=== PATIENT | male | born 1995 | race Caucasian/White ===

== ENCOUNTER 2020-05-14 20:27 | Inpatient (IN) | payer MEDICAID, OTHER ==
[~2020-05-14] VITALS: Ht 174.6 cm; Wt 112.5 kg
[~2020-05-14 20:27] MED LIST: DIVA-80 PO; RISP2TAB23 PO
[2020-05-14 21:40] LABS: BASOPHILS % (AUTO) 0.3 % (0.0-2.0); HEMATOCRIT 45.7 % (41-53); HEMOGLOBIN 15.5 g/dL (13.5-17.5); LYMPHOCYTES # (AUTO) 2.1 K/uL (1.0-4.8); LYMPHOCYTES % (AUTO) 20.9 % (22.0-44.0); MEAN CORPUSCULAR HEMOGLOBIN 30.6 pg (26.0-34.0); MEAN CORPUSCULAR VOLUME 90 fL (80-100); MONOCYTES # (AUTO) 0.7 K/uL (0.1-1.0); MONOCYTES % (AUTO) 6.8 % (2.0-9.0); PLATELET COUNT (AUTO) 231 K/uL (150-450); RED BLOOD CELL COUNT(AUTO) 5.07 MIL/uL (4.50-5.90); RED CELL DISTRIBUTION WIDTH 13.5 % (11.5-14.5)
[2020-05-14 21:53] LABS: ANION GAP 7 mmol/L (8-16); CALCIUM, TOTAL 9.4 mg/dL (8.8-10.5); CARBON DIOXIDE 31 mmol/L (22-29); CHLORIDE 102 mmol/L (98-107); CREATININE 1.13 mg/dL (0.60-1.30); GLOMERULAR FILTR. RATE CALC > 60 mL/min (>60); GLUCOSE,RANDOM 114 mg/dL (70-110); POTASSIUM 3.3 mmol/L (3.5-5.1); SODIUM SERUM 140 mmol/L (136-145); UREA NITROGEN, BLOOD 7 mg/dL (7-18)
[2020-05-14 21:56] LABS: AMPHET/METH SCREEN,URINE NEGATIVE (NEGATIVE); BARBITURATE SCREEN, URINE NEGATIVE (NEGATIVE); BENZODIAZEPINES SCREEN,URINE NEGATIVE (NEGATIVE); CANNABINOID SCREEN,URINE POSITIVE (NEGATIVE); COCAINE SCREEN,URINE NEGATIVE (NEGATIVE); METHADONE SCREEN, URINE NEGATIVE (NEGATIVE); OPIATE SCREEN,URINE NEGATIVE (NEGATIVE); PHENCYCLIDINE SCREEN,URINE NEGATIVE (NEGATIVE)
[2020-05-14 21:59] LABS: ALANINE AMINOTRANSFERASE 63 U/L (12-78); ALBUMIN 4.4 g/dL (3.4-5.0); ALKALINE PHOSPHATASE 81 U/L (46-116); ASPARTATE AMINOTRANSFERASE 93 U/L (15-37); TOTAL PROTEIN, SERUM 8.3 g/dL (6.4-8.2)
[2020-05-14] MEDS ORDERED: DiphenhydrAMINE HCL 50 MG/ML VIAL IM ONE (22:15)
[2020-05-14] MEDS ORDERED: LORazepam 2 MG/ML VIAL IM ONE (22:15)
[2020-05-14] MEDS ORDERED: POTASSIUM CHLORIDE 20 MEQ ER TABLET PO ONE (22:15)
[2020-05-14] MEDS ORDERED: HALOPERIDOL LACTATE 5 MG/ML VIAL IM ONE (22:15)
[2020-05-14] MEDS ORDERED: HALOPERIDOL 5 MG TABLET PO PRN (23:00)
[2020-05-14] MEDS ORDERED: LORazepam 2 MG TABLET PO PRN (23:00)
[2020-05-15 06:24] LABS: CHOL/HDL RATIO 2.8 (4.2-7.3)
[2020-05-15 09:14] VITALS: BP 133/79
[2020-05-15] MEDS: BACITRACIN 28.4 GM OINTMENT TP SCH ×2 (09:36→16:19)
[2020-05-15] MEDS ORDERED: MAG HYDROX/AL HYDROX/SIMETH ES 30 ML SUSPENSION UDCUP PO PRN (11:15)
[2020-05-15] MEDS ORDERED: ACETAMINOPHEN 325 MG TABLET PO PRN (11:15)
[2020-05-15] MEDS ORDERED: LOPERAMIDE HCL 2 MG CAPSULE PO PRN (11:15)
[2020-05-15] MEDS ORDERED: GuaiFENesin/D-METHORPHAN [SUGAR-FREE] 200-20MG/10 ML SYRUP UDCUP PO PRN (11:15)
[2020-05-15] MEDS ORDERED: ONDANSETRON HCL 4 MG TABLET PO PRN (11:15)
[2020-05-15] MEDS ORDERED: NICOTINE 14 MG/24 HOUR PATCH TD PRN (11:15)
[2020-05-15] MEDS ORDERED: ALBUTEROL SULFATE HFA 90 MCG/PUFF 8 GM INHALER IH PRN (11:15)
[2020-05-15] MEDS ORDERED: CloNIDine HCL 0.1 MG TABLET PO PRN (11:15)
[2020-05-15] MEDS ORDERED: PETROLATUM,WHITE 28 GM JELLY TP PRN (11:15)
[2020-05-15] MEDS ORDERED: MAGNESIUM HYDROXIDE SUSPENSION 30 ML UDCUP PO PRN (11:15)
[2020-05-15] MEDS ORDERED: DOCUSATE SODIUM 100 MG CAPSULE PO PRN (11:15)
[2020-05-15] MEDS ORDERED: IBUPROFEN 400 MG TABLET PO PRN (11:15)
[2020-05-15] MEDS: OLANZapine 5 MG TABLET PO SCH (16:19)
[2020-05-15] MEDS: DIVALPROEX SODIUM 500 MG DR TABLET PO SCH (16:19)
[2020-05-15 17:52] VITALS: BP 130/99
[2020-05-15] MEDS: ZOLPIDEM TARTRATE 10 MG TABLET PO PRN (22:10)
[2020-05-16 00:16] VITALS: BP 128/91
[2020-05-16] MEDS: DIVALPROEX SODIUM 500 MG DR TABLET PO SCH ×2 (08:05→16:04)
[2020-05-16] MEDS: BACITRACIN 28.4 GM OINTMENT TP SCH ×2 (08:05→16:09)
[2020-05-16] MEDS: OLANZapine 5 MG TABLET PO SCH ×2 (08:05→16:04)
[2020-05-16 08:18] VITALS: BP 134/78
[2020-05-16 16:46] VITALS: BP 142/86
[2020-05-16] MEDS: ZOLPIDEM TARTRATE 10 MG TABLET PO PRN (22:09)
[2020-05-17 00:12] VITALS: BP 138/79
[2020-05-17] MEDS: OLANZapine 5 MG TABLET PO SCH (08:43)
[2020-05-17] MEDS: DIVALPROEX SODIUM 500 MG DR TABLET PO SCH (08:44)
[2020-05-17] MEDS: BACITRACIN 28.4 GM OINTMENT TP SCH (08:48)
[2020-05-17 09:43] VITALS: BP 141/93
[2020-05-17] MEDS ORDERED: OLAN5TAB2 PO (12:41)
[2020-05-17] MEDS ORDERED: DIVA-112 PO (12:41)
== END 2020-05-17 14:11 | disposition home or self-care (01) | DRG 885 ==
LOC: EMS 20:30 → B2S 22:49
PROVIDERS: ADMIT Psychiatry & Neurology Psychiatry; ATTEND Psychiatry & Neurology Psychiatry
DX: F25.0 Schizoaffective disorder, bipolar type (principal); R45.851 Suicidal ideations; F41.9 Anxiety disorder, unspecified; E87.6 Hypokalemia; F12.90 Cannabis use, unspecified, uncomplicated; Z91.14 Patient's other noncompliance with medication regimen; K59.00 Constipation, unspecified; R74.0 Nonspecific elevation of levels of transaminase and lactic acid dehydrogenase [LDH]; R03.0 Elevated blood-pressure reading, without diagnosis of hypertension
CPT/HCPCS: 84132; G0480; J1200; J1630; J2060

== ENCOUNTER 2022-04-04 15:33 | Emergency (ER) | payer MEDICAID, OTHER ==
[~2022-04-04] VITALS: Ht 170.2 cm; Wt 90.9 kg
[~2022-04-04 15:33] MED LIST changes: +DIVA-112 PO; -DIVA-80 PO; +OLAN5TAB52 PO; -RISP2TAB23 PO
[2022-04-04 15:57] VITALS: BP 136/77
== END 2022-04-04 17:44 | disposition left against medical advice (07) ==
LOC: EMS 15:40
DX: Z53.21 Procedure and treatment not carried out due to patient leaving prior to being seen by health care provider (principal)

== ENCOUNTER 2022-04-04 21:16 | Emergency (ER) | payer OTHER ==
[~2022-04-04] VITALS: Ht 175.3 cm; Wt 104.5 kg
[2022-04-04] MEDS ORDERED: IBUPROFEN 400 MG TABLET PO ONE (23:45)
[2022-04-04] MEDS ORDERED: ACETAMINOPHEN 500 MG TABLET PO ONE (23:45)
[2022-04-05 00:20] VITALS: BP 124/62
== END 2022-04-05 01:52 | disposition home or self-care (01) ==
LOC: EMS 21:54
DX: M25.532 Pain in left wrist (principal); M25.531 Pain in right wrist; F12.90 Cannabis use, unspecified, uncomplicated; F17.210 Nicotine dependence, cigarettes, uncomplicated; F31.9 Bipolar disorder, unspecified; F41.9 Anxiety disorder, unspecified; M79.89 Other specified soft tissue disorders; M79.642 Pain in left hand; M79.641 Pain in right hand; Y04.0XXA Assault by unarmed brawl or fight, initial encounter; Y92.89 Other specified places as the place of occurrence of the external cause; Y93.89 Activity, other specified; Y99.8 Other external cause status
CPT/HCPCS: 99284; 73110-TC; 73130-TC; Z7502; Z7610

== ENCOUNTER 2022-04-14 04:41 | Inpatient (IN) | payer MEDICAID, OTHER ==
[~2022-04-14] VITALS: Ht 177.8 cm; Wt 101.7 kg
[2022-04-14] MEDS ORDERED: HALOPERIDOL LACTATE 5 MG/ML VIAL IM ONE ×2 (04:45→23:45)
[2022-04-14] MEDS ORDERED: DiphenhydrAMINE HCL 50 MG/ML VIAL IM ONE ×2 (04:45→23:45)
[2022-04-14] MEDS ORDERED: LORazepam 2 MG/ML VIAL IM ONE ×2 (04:45→23:45)
[2022-04-14 05:26] LABS: BASOPHILS % (AUTO) 0.6 % (0.0-2.0); EOSINOPHILS % (AUTO) 0.9 % (1.0-6.0); HEMATOCRIT 39.3 % (41-53); HEMOGLOBIN 13.3 g/dL (13.5-17.5); LYMPHOCYTES # (AUTO) 1.5 K/uL (1.0-4.8); LYMPHOCYTES % (AUTO) 26.9 % (22.0-44.0); MEAN CORPUSCULAR HEMOGLOBIN 30.8 pg (26.0-34.0); MEAN CORPUSCULAR HGB CONC 33.8 G/dL (31.0-37.0); MEAN CORPUSCULAR VOLUME 91 fL (80-100); MONOCYTES # (AUTO) 0.7 K/uL (0.1-1.0); MONOCYTES % (AUTO) 11.4 % (2.0-9.0); NEUTROPHILS # (AUTO) 3.5 K/uL (1.8-7.7); NEUTROPHILS % (AUTO) 60.2 % (40.0-70.0); PLATELET COUNT (AUTO) 252 K/uL (150-450); RED BLOOD CELL COUNT(AUTO) 4.31 MIL/uL (4.50-5.90); RED CELL DISTRIBUTION WIDTH 13.8 % (11.5-14.5)
[2022-04-14 05:34] LABS: ANION GAP 10 mmol/L (8-16); CALCIUM, TOTAL 8.2 mg/dL (8.8-10.5); CARBON DIOXIDE 26 mmol/L (22-29); CHLORIDE 105 mmol/L (98-107); GLUCOSE,RANDOM 100 mg/dL (70-110); POTASSIUM 3.4 mmol/L (3.5-5.1); SODIUM SERUM 141 mmol/L (136-145); UREA NITROGEN, BLOOD 7 mg/dL (7-18)
[2022-04-14 05:39] LABS: GLOMERULAR FILTR. RATE CALC > 60 mL/min (>60)
[2022-04-14 05:40] LABS: ALANINE AMINOTRANSFERASE 56 U/L (12-78); ALBUMIN 3.2 g/dL (3.4-5.0); ALKALINE PHOSPHATASE 68 U/L (46-116); ASPARTATE AMINOTRANSFERASE 51 U/L (15-37); BILIRUBIN,TOTAL 0.7 mg/dL (0.1-1.0); TOTAL PROTEIN, SERUM 6.6 g/dL (6.4-8.2)
[2022-04-14 06:47] LABS: VALPROIC ACID < 3 mcg/mL (50-100)
[2022-04-14] MEDS ORDERED: QUEtiapine FUMARATE 100 MG TABLET PO ONE (09:30)
[2022-04-14 10:36] LABS: COVID AG,FIA SOURCE NASAL SWAB
[2022-04-14 11:59] VITALS: BP 140/85
[2022-04-14] MEDS ORDERED: PNEUMOCOCCAL VACCINE POLYVALENT 0.5 ML VIAL [PPSV23] IM. ONE (12:15)
[2022-04-14 17:12] VITALS: BP 159/96
[2022-04-14] MEDS: ZOLPIDEM TARTRATE 10 MG TABLET PO PRN (20:04)
[2022-04-14] MEDS ORDERED: CloNIDine HCL 0.1 MG TABLET PO PRN (20:30)
[2022-04-14] MEDS ORDERED: IBUPROFEN 600 MG TABLET PO PRN (20:30)
[2022-04-14] MEDS ORDERED: MAGNESIUM HYDROXIDE SUSPENSION 30 ML UDCUP PO PRN (20:30)
[2022-04-14] MEDS ORDERED: ALBUTEROL SULFATE HFA 90 MCG/PUFF 8 GM INHALER IH PRN (20:30)
[2022-04-14] MEDS ORDERED: LOPERAMIDE HCL 2 MG CAPSULE PO PRN (20:30)
[2022-04-14] MEDS ORDERED: ACETAMINOPHEN 325 MG TABLET PO PRN (20:30)
[2022-04-14] MEDS ORDERED: DOCUSATE SODIUM 100 MG CAPSULE PO PRN (20:30)
[2022-04-14] MEDS ORDERED: OMEPRAZOLE 20 MG CAPSULE PO PRN (20:30)
[2022-04-14] MEDS ORDERED: ONDANSETRON HCL 4 MG TABLET PO PRN (20:30)
[2022-04-14] MEDS ORDERED: BENZOCAINE/MENTHOL LOZENGE PO PRN (20:30)
[2022-04-14] MEDS ORDERED: PETROLATUM,WHITE 28 GM JELLY TP PRN (20:30)
[2022-04-14] MEDS ORDERED: BACITRACIN 28 GM OINTMENT TP PRN (20:30)
[2022-04-14] MEDS ORDERED: MAG HYDROX/AL HYDROX/SIMETH ES 30 ML SUSPENSION UDCUP PO PRN (20:30)
[2022-04-14] MEDS ORDERED: LORazepam 2 MG/ML VIAL ONE (23:47)
[2022-04-14] MEDS ORDERED: HALOPERIDOL LACTATE 5 MG/ML VIAL ONE (23:47)
[2022-04-14] MEDS ORDERED: DiphenhydrAMINE HCL 50 MG/ML VIAL ONE (23:48)
[2022-04-15] MEDS: HALOPERIDOL 5 MG TABLET PO PRN (03:17)
[2022-04-15] MEDS: LORazepam 2 MG TABLET PO PRN ×2 (03:17→20:18)
[2022-04-15] MEDS ORDERED: POTASSIUM CHLORIDE 20 MEQ ER TABLET PO ONE (06:45)
[2022-04-15 08:41] VITALS: BP 148/90
[2022-04-15 16:25] VITALS: BP 156/74
[2022-04-15] MEDS: DIVALPROEX SODIUM 500 MG DR TABLET PO SCH (20:16)
[2022-04-15] MEDS: OLANZapine 5 MG TABLET PO SCH (20:17)
[2022-04-15] MEDS ORDERED: HALOPERIDOL LACTATE 5 MG/ML VIAL IM ONE (20:45)
[2022-04-15] MEDS ORDERED: LORazepam 2 MG/ML VIAL IM ONE (20:45)
[2022-04-15] MEDS ORDERED: DiphenhydrAMINE HCL 50 MG/ML VIAL IM ONE (20:45)
[2022-04-16 08:14] VITALS: BP 144/89
[2022-04-16] MEDS: LORazepam 2 MG TABLET PO PRN ×2 (08:30→17:55)
[2022-04-16] MEDS: HALOPERIDOL 5 MG TABLET PO PRN (08:30)
[2022-04-16] MEDS: DIVALPROEX SODIUM 500 MG DR TABLET PO SCH ×2 (08:31→20:10)
[2022-04-16 09:05] LABS: CHOL/HDL RATIO 3.5 (4.2-7.3); POTASSIUM 4.6 mmol/L (3.5-5.1)
[2022-04-16 15:58] LABS: APPEARANCE,URINE CLEAR (CLEAR); BILIRUBIN,URINE NEGATIVE (NEGATIVE); GLUCOSE, URINE (UA) NEGATIVE (NEGATIVE); KETONES,URINE NEGATIVE (NEGATIVE); LEUKOCYTE ESTERASE ,URINE NEGATIVE (NEGATIVE); NITRATE,URINE NEGATIVE (NEGATIVE); OCCULT BLOOD,URINE NEGATIVE (NEGATIVE); PH,URINE 5.5 (5.0-8.0); PROTEIN,URINE NEGATIVE (NEGATIVE); SPECIFIC GRAVITIY, URINE 1.015 (1.003-1.030); UROBILINOGEN,URINE <=1.0 mg/dL (<=1.0)
[2022-04-16 16:05] LABS: AMPHET/METH SCREEN,URINE NEGATIVE (NEGATIVE); BARBITURATE SCREEN, URINE NEGATIVE (NEGATIVE); BENZODIAZEPINES SCREEN,URINE NEGATIVE (NEGATIVE); CANNABINOID SCREEN,URINE POSITIVE (NEGATIVE); COCAINE SCREEN,URINE NEGATIVE (NEGATIVE); METHADONE SCREEN, URINE NEGATIVE (NEGATIVE); OPIATE SCREEN,URINE NEGATIVE (NEGATIVE)
[2022-04-16 16:07] LABS: PHENCYCLIDINE SCREEN,URINE NEGATIVE (NEGATIVE)
[2022-04-16 16:08] VITALS: BP 152/82
[2022-04-16] MEDS: OLANZapine 5 MG TABLET PO SCH (20:10)
[2022-04-16] MEDS: ZOLPIDEM TARTRATE 10 MG TABLET PO PRN (20:41)
[2022-04-17] MEDS: LORazepam 2 MG TABLET PO PRN ×2 (00:18→09:10)
[2022-04-17 08:08] VITALS: BP 138/81
[2022-04-17] MEDS: DIVALPROEX SODIUM 500 MG DR TABLET PO SCH (09:10)
[2022-04-17] MEDS ORDERED: DIVA-112 PO (13:20)
[2022-04-17] MEDS ORDERED: OLAN5TAB52 PO (13:23)
== END 2022-04-17 13:55 | disposition home or self-care (01) | DRG 750 ==
LOC: EMS 04:41 → 3EC 11:19
PROVIDERS: ADMIT Psychiatry & Neurology Psychiatry; ATTEND Psychiatry & Neurology Psychiatry
DX: F25.0 Schizoaffective disorder, bipolar type (principal); E87.6 Hypokalemia; F10.129 Alcohol abuse with intoxication, unspecified; Z20.822 Contact with and (suspected) exposure to COVID-19; F19.10 Other psychoactive substance abuse, uncomplicated; F41.9 Anxiety disorder, unspecified; G47.00 Insomnia, unspecified; I10 Essential (primary) hypertension; K21.9 Gastro-esophageal reflux disease without esophagitis; Y90.6 Blood alcohol level of 120-199 mg/100 ml; F17.210 Nicotine dependence, cigarettes, uncomplicated; Z79.899 Other long term (current) drug therapy
CPT/HCPCS: 80053; 80061; 80164; 81003; 84132; 85025; 99285; G0480; J1200; J1630; J2060

== ENCOUNTER 2022-04-20 11:54 | Inpatient (IN) | payer MEDICAID, OTHER ==
[~2022-04-20] VITALS: Ht 175.3 cm; Wt 106.7 kg
[2022-04-20 12:37] LABS: BASOPHILS % (AUTO) 0.5 % (0.0-2.0); EOSINOPHILS % (AUTO) 1.2 % (1.0-6.0); HEMATOCRIT 46.9 % (41-53); HEMOGLOBIN 15.7 g/dL (13.5-17.5); LYMPHOCYTES # (AUTO) 1.8 K/uL (1.0-4.8); LYMPHOCYTES % (AUTO) 27.4 % (22.0-44.0); MEAN CORPUSCULAR HEMOGLOBIN 30.5 pg (26.0-34.0); MEAN CORPUSCULAR HGB CONC 33.5 G/dL (31.0-37.0); MEAN CORPUSCULAR VOLUME 91 fL (80-100); MONOCYTES # (AUTO) 0.7 K/uL (0.1-1.0); MONOCYTES % (AUTO) 10.4 % (2.0-9.0); NEUTROPHILS # (AUTO) 3.9 K/uL (1.8-7.7); NEUTROPHILS % (AUTO) 60.5 % (40.0-70.0); PLATELET COUNT (AUTO) 312 K/uL (150-450); RED BLOOD CELL COUNT(AUTO) 5.14 MIL/uL (4.50-5.90)
[2022-04-20 12:48] LABS: ANION GAP 7 mmol/L (8-16); CALCIUM, TOTAL 8.8 mg/dL (8.8-10.5); CARBON DIOXIDE 31 mmol/L (22-29); CHLORIDE 104 mmol/L (98-107); CREATININE 1.03 mg/dL (0.60-1.30); GLUCOSE,RANDOM 97 mg/dL (70-110); SODIUM SERUM 142 mmol/L (136-145); UREA NITROGEN, BLOOD 11 mg/dL (7-18)
[2022-04-20 12:51] LABS: GLOMERULAR FILTR. RATE CALC > 60 mL/min (>60)
[2022-04-20 12:51] LABS: AMPHET/METH SCREEN,URINE NEGATIVE (NEGATIVE); BARBITURATE SCREEN, URINE NEGATIVE (NEGATIVE); BENZODIAZEPINES SCREEN,URINE NEGATIVE (NEGATIVE); CANNABINOID SCREEN,URINE POSITIVE (NEGATIVE); COCAINE SCREEN,URINE NEGATIVE (NEGATIVE); METHADONE SCREEN, URINE NEGATIVE (NEGATIVE); OPIATE SCREEN,URINE NEGATIVE (NEGATIVE)
[2022-04-20 12:57] LABS: ALANINE AMINOTRANSFERASE 56 U/L (12-78); ALBUMIN 3.7 g/dL (3.4-5.0); ALKALINE PHOSPHATASE 88 U/L (46-116); ASPARTATE AMINOTRANSFERASE 38 U/L (15-37); BILIRUBIN,TOTAL 0.6 mg/dL (0.1-1.0); TOTAL PROTEIN, SERUM 7.3 g/dL (6.4-8.2)
[2022-04-20 13:02] LABS: PHENCYCLIDINE SCREEN,URINE NEGATIVE (NEGATIVE)
[2022-04-20] MEDS ORDERED: OLANZapine 5 MG TABLET PO ONE (13:15)
[2022-04-20] MEDS ORDERED: HydrOXYzine PAMOATE 25 MG CAPSULE PO ONE ×2 (13:15→21:15)
[2022-04-20 15:33] LABS: COVID AG,FIA SOURCE NASAL SWAB
[2022-04-20] MEDS ORDERED: LORazepam 1 MG TABLET PO ONE (20:15)
[2022-04-21] MEDS: LORazepam 2 MG TABLET PO PRN ×3 (00:06→15:53)
[2022-04-21] MEDS: ZOLPIDEM TARTRATE 10 MG TABLET PO PRN ×2 (00:06→20:19)
[2022-04-21 03:35] VITALS: BP 138/82
[2022-04-21 06:55] LABS: HEMATOCRIT 45.3 % (41-53); HEMOGLOBIN 15.2 g/dL (13.5-17.5); MEAN CORPUSCULAR HEMOGLOBIN 30.8 pg (26.0-34.0); MEAN CORPUSCULAR HGB CONC 33.5 G/dL (31.0-37.0); MEAN CORPUSCULAR VOLUME 92 fL (80-100); PLATELET COUNT (AUTO) 307 K/uL (150-450); RED BLOOD CELL COUNT(AUTO) 4.93 MIL/uL (4.50-5.90); RED CELL DISTRIBUTION WIDTH 14.1 % (11.5-14.5)
[2022-04-21 06:57] LABS: HEMOGLOBIN A1C 5.1 % (3.8-5.6)
[2022-04-21 07:03] LABS: ALANINE AMINOTRANSFERASE 51 U/L (12-78); ALBUMIN 3.4 g/dL (3.4-5.0); ALKALINE PHOSPHATASE 86 U/L (46-116); ANION GAP 9 mmol/L (8-16); ASPARTATE AMINOTRANSFERASE 32 U/L (15-37); BILIRUBIN,TOTAL 0.4 mg/dL (0.1-1.0); CALCIUM, TOTAL 8.6 mg/dL (8.8-10.5); CARBON DIOXIDE 26 mmol/L (22-29); CHLORIDE 108 mmol/L (98-107); CHOLESTEROL 149 mg/dL (131-200); CREATININE 0.87 mg/dL (0.60-1.30); GLUCOSE,RANDOM 90 mg/dL (70-110); HDL CHOLESTEROL 37 mg/dL (40-60); LDL CHOL (CALC.) 83 mg/dL (0-130); POTASSIUM 4.4 mmol/L (3.5-5.1); SODIUM SERUM 143 mmol/L (136-145); TOTAL PROTEIN, SERUM 6.7 g/dL (6.4-8.2); TRIGLYCERIDES 146 mg/dL (15-150); UREA NITROGEN, BLOOD 14 mg/dL (7-18)
[2022-04-21 07:04] LABS: GLOMERULAR FILTR. RATE CALC > 60 mL/min (>60)
[2022-04-21 07:11] LABS: BAND NEUTROPHILS % (MANUAL) 1 % (0-5); EOSINOPHILS % (MANUAL) 1 % (1-6); LYMPHOCYTES % (MANUAL) 26 % (22-44); MONOCYTES % (MANUAL) 8 % (2-9); SEGMENTED NEUTROPHILS % 64 % (40-70)
[2022-04-21 07:26] LABS: FREE T4 (FREE THYROXINE) 0.95 ng/dL (0.76-1.46); THYROID STIMULATING HORMONE 5.08 uIU/mL (0.36-3.74)
[2022-04-21 08:18] VITALS: BP 133/68
[2022-04-21] MEDS: HALOPERIDOL 5 MG TABLET PO PRN (15:53)
[2022-04-21 16:07] VITALS: BP 140/84
[2022-04-21] MEDS ORDERED: ALBUTEROL SULFATE HFA 90 MCG/PUFF 8 GM INHALER IH PRN (18:45)
[2022-04-21] MEDS ORDERED: LOPERAMIDE HCL 2 MG CAPSULE PO PRN (18:45)
[2022-04-21] MEDS ORDERED: MAG HYDROX/AL HYDROX/SIMETH ES 30 ML SUSPENSION UDCUP PO PRN (18:45)
[2022-04-21] MEDS ORDERED: ONDANSETRON HCL 4 MG TABLET PO PRN (18:45)
[2022-04-21] MEDS ORDERED: MAGNESIUM HYDROXIDE SUSPENSION 30 ML UDCUP PO PRN (18:45)
[2022-04-21] MEDS ORDERED: OMEPRAZOLE 20 MG CAPSULE PO PRN (18:45)
[2022-04-21] MEDS ORDERED: BACITRACIN 28 GM OINTMENT TP PRN (18:45)
[2022-04-21] MEDS ORDERED: BENZOCAINE/MENTHOL LOZENGE PO PRN (18:45)
[2022-04-21] MEDS ORDERED: DOCUSATE SODIUM 100 MG CAPSULE PO PRN (18:45)
[2022-04-21] MEDS ORDERED: CloNIDine HCL 0.1 MG TABLET PO PRN (18:45)
[2022-04-21] MEDS ORDERED: PETROLATUM,WHITE 28 GM JELLY TP PRN (18:45)
[2022-04-21] MEDS ORDERED: ACETAMINOPHEN 325 MG TABLET PO PRN (18:45)
[2022-04-22] MEDS: IBUPROFEN 600 MG TABLET PO PRN
[2022-04-22 00:02] VITALS: BP 136/87
[2022-04-22 00:44] VITALS: BP 138/87
[2022-04-22] MEDS: HALOPERIDOL 5 MG TABLET PO PRN (00:45)
[2022-04-22] MEDS: LEVOTHYROXINE SODIUM 25 MCG TABLET PO SCH (06:08)
[2022-04-22] MEDS: LORazepam 2 MG TABLET PO PRN ×4 (07:48→22:13)
[2022-04-22] MEDS: NICOTINE 21 MG/24 HOUR PATCH TD SCH (08:00)
[2022-04-22 08:12] VITALS: BP 145/66
[2022-04-22 16:39] VITALS: BP 122/79
[2022-04-23 01:27] VITALS: BP 130/76
[2022-04-23] MEDS: LEVOTHYROXINE SODIUM 25 MCG TABLET PO SCH (06:03)
[2022-04-23] MEDS: NICOTINE 21 MG/24 HOUR PATCH TD SCH (08:02)
[2022-04-23 08:35] VITALS: BP 142/82
[2022-04-23] MEDS: IBUPROFEN 600 MG TABLET PO PRN (10:27)
[2022-04-23 10:31] VITALS: BP 123/76
== END 2022-04-23 13:00 | disposition home or self-care (01) | DRG 750 ==
LOC: EMS 11:54 → B3A 19:17
PROVIDERS: ADMIT Psychiatry & Neurology Psychiatry; ATTEND Psychiatry & Neurology Psychiatry
DX: F25.9 Schizoaffective disorder, unspecified (principal); E03.9 Hypothyroidism, unspecified; F32.A Depression, unspecified; F43.10 Post-traumatic stress disorder, unspecified; G47.00 Insomnia, unspecified; Z20.822 Contact with and (suspected) exposure to COVID-19; K21.9 Gastro-esophageal reflux disease without esophagitis; F17.200 Nicotine dependence, unspecified, uncomplicated; F12.10 Cannabis abuse, uncomplicated; Z71.51 Drug abuse counseling and surveillance of drug abuser
CPT/HCPCS: 80053; 80061; 83036; 84439; 84443; 85007; 85025; 85027; 87081; 99285; G0480

== ENCOUNTER 2022-08-19 02:55 | Inpatient (IN) | payer MEDICAID, OTHER ==
[~2022-08-19] VITALS: Ht 175.3 cm; Wt 101.0 kg
[2022-08-19 05:10] LABS: COVID AG,FIA SOURCE NASOPHARYNGEAL
[2022-08-19] MEDS ORDERED: HALOPERIDOL 5 MG TABLET PO ONE (05:15)
[2022-08-19] MEDS ORDERED: LORazepam 1 MG TABLET PO ONE (05:15)
[2022-08-19] MEDS ORDERED: ACETAMINOPHEN 500 MG TABLET PO ONE (05:15)
[2022-08-19 05:25] LABS: BASOPHILS % (AUTO) 0.3 % (0.0-2.0); EOSINOPHILS % (AUTO) 0.7 % (1.0-6.0); HEMATOCRIT 49.3 % (41-53); HEMOGLOBIN 16.3 g/dL (13.5-17.5); LYMPHOCYTES # (AUTO) 2.7 K/uL (1.0-4.8); LYMPHOCYTES % (AUTO) 34.7 % (22.0-44.0); MEAN CORPUSCULAR HEMOGLOBIN 30.6 pg (26.0-34.0); MEAN CORPUSCULAR HGB CONC 33.1 G/dL (31.0-37.0); MEAN CORPUSCULAR VOLUME 92 fL (80-100); MONOCYTES # (AUTO) 0.6 K/uL (0.1-1.0); MONOCYTES % (AUTO) 7.5 % (2.0-9.0); NEUTROPHILS # (AUTO) 4.4 K/uL (1.8-7.7); NEUTROPHILS % (AUTO) 56.8 % (40.0-70.0); PLATELET COUNT (AUTO) 255 K/uL (150-450); RED BLOOD CELL COUNT(AUTO) 5.34 MIL/uL (4.50-5.90); RED CELL DISTRIBUTION WIDTH 14.2 % (11.5-14.5)
[2022-08-19 05:33] LABS: AMPHET/METH SCREEN,URINE NEGATIVE (NEGATIVE); BARBITURATE SCREEN, URINE NEGATIVE (NEGATIVE); BENZODIAZEPINES SCREEN,URINE NEGATIVE (NEGATIVE); CANNABINOID SCREEN,URINE POSITIVE (NEGATIVE); COCAINE SCREEN,URINE POSITIVE (NEGATIVE); METHADONE SCREEN, URINE NEGATIVE (NEGATIVE); OPIATE SCREEN,URINE NEGATIVE (NEGATIVE); PHENCYCLIDINE SCREEN,URINE NEGATIVE (NEGATIVE)
[2022-08-19 05:46] LABS: ANION GAP 14 mmol/L (8-16); CARBON DIOXIDE 24 mmol/L (22-29); CHLORIDE 107 mmol/L (98-107); CREATININE 0.82 mg/dL (0.60-1.30); GLOMERULAR FILTR. RATE CALC > 60 mL/min (>60); GLUCOSE,RANDOM 103 mg/dL (70-110); POTASSIUM 3.9 mmol/L (3.5-5.1); SODIUM SERUM 145 mmol/L (136-145); UREA NITROGEN, BLOOD 7 mg/dL (7-18)
[2022-08-19 05:51] LABS: ALANINE AMINOTRANSFERASE 34 U/L (12-78); ALKALINE PHOSPHATASE 89 U/L (46-116); ASPARTATE AMINOTRANSFERASE 29 U/L (15-37); BILIRUBIN,TOTAL 0.5 mg/dL (0.1-1.0)
[2022-08-19 06:04] LABS: VALPROIC ACID < 3 mcg/mL (50-100)
[2022-08-19] MEDS ORDERED: LORazepam 2 MG TABLET PO PRN (07:15)
[2022-08-19] MEDS ORDERED: HALOPERIDOL 5 MG TABLET PO PRN (07:15)
[2022-08-19] MEDS ORDERED: MAG HYDROX/AL HYDROX/SIMETH ES 30 ML SUSPENSION UDCUP PO PRN (10:30)
[2022-08-19] MEDS ORDERED: DOCUSATE SODIUM 100 MG CAPSULE PO PRN (10:30)
[2022-08-19] MEDS ORDERED: NICOTINE 14 MG/24 HOUR PATCH TD PRN (10:30)
[2022-08-19] MEDS ORDERED: ACETAMINOPHEN 325 MG TABLET PO PRN (10:30)
[2022-08-19] MEDS ORDERED: IBUPROFEN 400 MG TABLET PO PRN (10:30)
[2022-08-19] MEDS ORDERED: ONDANSETRON HCL 4 MG TABLET PO PRN (10:30)
[2022-08-19] MEDS ORDERED: CloNIDine HCL 0.1 MG TABLET PO PRN (10:30)
[2022-08-19] MEDS ORDERED: ALBUTEROL SULFATE HFA 90 MCG/PUFF 8 GM INHALER IH PRN (10:30)
[2022-08-19] MEDS ORDERED: LOPERAMIDE HCL 2 MG CAPSULE PO PRN (10:30)
[2022-08-19] MEDS ORDERED: MAGNESIUM HYDROXIDE SUSPENSION 30 ML UDCUP PO PRN (10:30)
[2022-08-19] MEDS ORDERED: GuaiFENesin/D-METHORPHAN [SUGAR-FREE] 200-20MG/10 ML SYRUP UDCUP PO PRN (10:30)
[2022-08-19] MEDS ORDERED: PETROLATUM,WHITE 28 GM JELLY TP PRN (10:30)
[2022-08-19 13:58] VITALS: BP 116/58
[2022-08-19 15:12] LABS: APPEARANCE,URINE TURBID (CLEAR); BILIRUBIN,URINE NEGATIVE (NEGATIVE); GLUCOSE, URINE (UA) NEGATIVE (NEGATIVE); KETONES,URINE NEGATIVE (NEGATIVE); LEUKOCYTE ESTERASE ,URINE NEGATIVE (NEGATIVE); NITRATE,URINE NEGATIVE (NEGATIVE); OCCULT BLOOD,URINE NEGATIVE (NEGATIVE); PROTEIN,URINE TRACE mg/dL (NEGATIVE); UROBILINOGEN,URINE <=1.0 mg/dL (<=1.0)
[2022-08-19] MEDS ORDERED: INFLUENZA VIRUS VACCINE QVS 2022-23 (6MO+)/PF 60 MCG/0.5 ML SYRINGE IM. ONE (15:30)
[2022-08-19 18:08] VITALS: BP 116/58
[2022-08-19 20:37] VITALS: BP 116/69
[2022-08-19] MEDS: ZOLPIDEM TARTRATE 10 MG TABLET PO PRN (21:53)
[2022-08-20 08:41] VITALS: BP 128/69
[2022-08-20] MEDS: OLANZapine 5 MG TABLET PO SCH ×2 (11:31→22:15)
[2022-08-20] MEDS: ZOLPIDEM TARTRATE 10 MG TABLET PO PRN (22:16)
[2022-08-21 08:51] VITALS: BP 121/65
[2022-08-21] MEDS: OLANZapine 5 MG TABLET PO SCH (09:00)
[2022-08-21] MEDS ORDERED: OLAN5TAB52 PO (10:08)
== END 2022-08-21 16:35 | disposition home or self-care (01) | DRG 750 ==
LOC: EMS 02:55 → B3A 08:08
PROVIDERS: ADMIT Psychiatry & Neurology Child & Adolescent Psychiatry; ATTEND Psychiatry & Neurology Child & Adolescent Psychiatry
DX: F25.0 Schizoaffective disorder, bipolar type (principal); R45.851 Suicidal ideations; Z91.199 Patient's noncompliance with other medical treatment and regimen due to unspecified reason; E66.9 Obesity, unspecified; F10.129 Alcohol abuse with intoxication, unspecified; F14.10 Cocaine abuse, uncomplicated; F17.200 Nicotine dependence, unspecified, uncomplicated; Y90.6 Blood alcohol level of 120-199 mg/100 ml; Z20.822 Contact with and (suspected) exposure to COVID-19; Z68.32 Body mass index [BMI] 32.0-32.9, adult; Z71.6 Tobacco abuse counseling
CPT/HCPCS: 80053; 80164; 81003; 85025; 99285; G0480